=== PATIENT | female | born 1980 | race Caucasian/White ===

== ENCOUNTER 2019-09-05 23:32 | Emergency (ER) | payer OTHER, SELFPAY ==
--- NOTE | ~2019-09-05 | XR_ITS ---
EXAMINATION: XR pelvis 1-2V DATE: 09/06/2019 00:26 INDICATION: Right hip pain. Fall. TECHNIQUE: An anteroposterior view of the pelvis was obtained. COMPARISON: None. FINDINGS: Bone alignment is normal. No fracture. Joint spaces are well maintained. IMPRESSION: 1. Normal pelvis. Reviewed, dictated and finalized at location A. [facility] IMPRESSION: 1. Normal pelvis.
[2019-09-05 23:37] VITALS: BP 154/83; PULSE 88; RESP 16; TEMP 36.8; O2SAT 100
--- NOTE | 2019-09-05 23:59 | ED.GENADULT ---
HPI - General Adult General Chief complaint: Extremity Injury, Lower Stated complaint: tripped on toy and did the splits/ leg pain Time Seen by Provider: 09/05/19 23:36 Source: patient and family Mode of arrival: ambulatory Limitations: no limitations History of Present Illness HPI narrative: Patient is 39-year-old female who presents to emergency department for evaluation of pain to the buttock after doing the splits after slipping on a toy just prior to arrival has not had anything for pain pain is located to the bilateral buttock patient notes moderate aching pain worse with sitting activity and movement patient denies other injuries or complaints and presents per private vehicle Related Data Allergies Allergy/AdvReac Type Severity Reaction Status Date / Time lisinopril Allergy Severe Swelling Verified 09/06/19 00:04 losartan Allergy Mild ITCHING Verified 09/06/19 00:04 Review of Systems Review of Systems: Narrative: CONSTITUTIONAL: Denies fever, chills, or sweats. CARDIOVASCULAR: Denies chest pain GASTROINTESTINAL: Denies abdominal pain, nausea, vomiting, or diarrhea. GENITOURINARY: Denies dysuria or hematuria. SKIN: Denies bruising or swelling MUSCULOSKELETAL: Denies joint pain NEUROLOGIC: Denies headache, numbness, dizziness, or weakness. [facility] Surgical History Surgical History History of Exam Narrative: Exam Narrative: GENERAL: Well-appearing, well-nourished, and in no acute distress. HEAD: Normocephalic, atraumatic. EYES: PERRLA and EOMI. ENT: Nares clear, no rhinorrhea or epistaxis. Mucous membranes moist. CHEST: Clear to auscultation. No respiratory distress. No wheezes rales or rhonchi HEART: Regular rate and rhythm. No murmur heard. Normal peripheral pulses. ABDOMEN: Soft, nontender, nondistended EXTREMITIES: Normal range of motion. No edema. No lumbar tenderness to palpation. Tenderness of the pelvis no deformity SKIN: Warm, dry, no rash. NEURO: No focal deficits. Alert and oriented x3. Cranial nerves II through XII grossly intact. Normal speech and gait PSYCH: Normal mood and affect. Course Vital Signs Vital signs: Vital Signs Temperature 98.2 F 09/05/19 23:37 Pulse Rate 88 09/05/19 23:37 Respiratory Rate 16 09/05/19 23:37 Blood Pressure 154/83 H 09/05/19 23:37 Pulse Oximetry 100 09/05/19 23:37 Temperature 98.2 F 09/05/19 23:37 Pulse Rate 88 09/05/19 23:37 Respiratory Rate 16 09/05/19 23:37 Blood Pressure 154/83 H 09/05/19 23:37 Pulse Oximetry 100 09/05/19 23:37 Medical Decision Making MDM Narrative Medical decision making narrative: Patients injury or pain is consistent with musculoskeletal etiology. No signs of neurological or vascular compromise on exam. Compartments and tisues are soft without signs of compartment syndrome. Pain is felt appropriate for further evaluation on an outpatient basis. Vital Signs Vital Signs: Vital Signs Temperature 98.2 F 09/05/19 23:37 Pulse Rate 88 09/05/19 23:37 Respiratory Rate 16 09/05/19 23:37 Blood Pressure 154/83 H 09/05/19 23:37 Pulse Oximetry 100 09/05/19 23:37 Temperature 98.2 F 09/05/19 23:37 Pulse Rate 88 09/05/19 23:37 Respiratory Rate 16 09/05/19 23:37 Blood Pressure 154/83 H 09/05/19 23:37 Pulse Oximetry 100 09/05/19 23:37 Discharge Plan Discharge Clinical Impression: Pelvic pain Patient Disposition: Home, Self-Care Condition: Stable Instructions: Antibiotic Form, Pelvic Pain (ED) Additional Instructions: Medications as needed and prescribed. Limit lifting and bending. You may apply heat or cold to the area as needed. Follow up with your doctor for further care. Contact your doctor or return to the emergency department if you develop problems with bladder or bowel function, weakness or loss of feeling in one or both of your legs, or any other serious concerns. Prescriptions: New
[2019-09-06] MEDS: IBUPROFEN 600 MG TABLET PO (00:12)
[2019-09-06 01:31] VITALS: BP 128/70; PULSE 88; RESP 17; O2SAT 98
[2019-09-06] MEDS: DIAZEPAM 2 MG TABLET PO (01:31)
== END 2019-09-06 01:39 | disposition home or self-care (01) ==
PROVIDERS: Emergency Provider Emergency Medicine
DX: R10.2 Pelvic and perineal pain (principal); W18.09XA Striking against other object with subsequent fall, initial encounter
CPT/HCPCS: 72170; 99283; A9270

== ENCOUNTER 2020-01-23 16:56 | Emergency (ER) | payer OTHER, SELFPAY ==
[2020-01-23 17:02] VITALS: BP 150/71; PULSE 85; RESP 20; TEMP 37.3; O2SAT 99
--- NOTE | 2020-01-23 17:32 | ED.GENADULT ---
HPI - General Adult General Chief complaint: Urogenital-Female Stated complaint: uti Time Seen by Provider: 01/23/20 17:32 Source: patient and RN notes reviewed Mode of arrival: ambulatory Limitations: no limitations History of Present Illness HPI narrative: 39-year-old female presents with urinary complaints for 1 day. Dysuria consist of burning and urgency.? No treatment.? Denies fever or chills. No significant pelvic pain. No vaginal discharge.? No concerns for STDs. Exacerbating factors urinating.? Denies hematuria or vaginal bleeding. Denies being , LMP 4 weeks ago and not sexually active.? No flank pain. Denies nausea, vomiting, and abdominal pain.? Tolerating liquids well.? Remains active. The patient reports she have not been diagnosed with COVID-19. The patient reports she is not waiting for the results of a COVID-19 lab test. The patient reports she do not have fever, chills, weakness, or fatigue. The patient reports she do not have a new or worsening cough or shortness of breath. Denies chest pain. The patient reports she do not have any rhinorrhea, congestion, sore throat, and diarrhea. Denies recent traveling. Denies concerns for COVID-19 or exposures been home with limited outdoor exposure except for essential household needs and return home. At this time, patient is not suspected of having COVID-19. Some parts of this dictation were generated by voice recognition software and may contain typographical and/or grammatical inaccuracies. Related Data Home Medications Medication Instructions Recorded Confirmed levothyroxine 125 mcg PO DAILY 01/23/20 01/23/20 sertraline 100 mg PO DAILY 01/23/20 01/23/20 Allergies Allergy/AdvReac Type Severity Reaction Status Date / Time lisinopril Allergy Severe Swelling Verified 01/23/20 17:03 losartan Allergy Mild ITCHING Verified 01/23/20 17:03 Review of Systems Review of Systems: Narrative: CONSTITUTIONAL: Denies fever, chills, sweats. EYES: Denies visual changes, redness, discharge. ENT: Denies rhinorrhea, congestion, sore throat, otalgia. CARDIOVASCULAR: Denies chest pain, palpitations, edema. RESPIRATORY: Denies dyspnea, wheezing, cough. GASTROINTESTINAL: Denies abdominal pain, nausea, vomiting, diarrhea. GENITOURINARY: Complains of dysuria (burning and urgency). Denies hematuria, abnormal discharge. SKIN: Denies rash or itching. MUSCULOSKELETAL: Denies acute back pain, joint pain, or myalgia. NEUROLOGIC: Denies numbness or focal weakness. PSYCHIATRIC: Denies anxiety or depression. All systems reviewed & are unremarkable except as noted in HPI and below. [facility] Past Medical History Medical History delivery delivered Depression Hypothyroidism Surgical History Surgical History History of twins Family History Family History Father Unknown family medical history Mother , 2 years ago, cardiac Heart disease Social History Social History Smoking status: Former smoker Smoking end date: 07/31/09 Alcohol intake: never Substance use: never Living arrangements: with family Occupation/Education: unemployed Gender identity (if verbalized by the patient): Female Comments At time of signature, agree with nurse past medical, surgical, social, and family history.? There is no relevant family history pertinent to the presenting complaint. Exam Narrative: Exam Narrative: GENERAL: This is a well-nourished, well-developed patient, in no apparent distress.? Talks in full sentences and ambulates with steady gait without dyspnea. HEAD: normocephalic, atraumatic. EYES: PERRL. Sclera clear/white. Vision is grossly intact. CARDIOVASCULAR: Regular rate and rhythm without murmurs, gallops, or rub
== END 2020-01-23 17:42 | disposition home or self-care (01) ==
PROVIDERS: Emergency Provider Nurse Practitioner Family
DX: R30.0 Dysuria (principal); E03.9 Hypothyroidism, unspecified; I10 Essential (primary) hypertension; Z87.891 Personal history of nicotine dependence
CPT/HCPCS: 81003; 87086; 87088; 99213; G0463

== ENCOUNTER 2020-09-17 16:25 | Emergency (ER) | payer OTHER, SELFPAY ==
[2020-09-17 16:50] VITALS: BP 133/76; PULSE 75; RESP 20; TEMP 36.3; O2SAT 100
--- NOTE | 2020-09-17 17:36 | ED.DENTAL ---
HPI - Dental/Oral General Chief complaint: Dental/Oral Stated complaint: Dental/Oral Source: patient Mode of arrival: ambulatory Limitations: no limitations History of Present Illness HPI Narrative: Patient is a 40-year-old female who presents complaining of right lower dental pain 1 week. She reports using [id number] meds for pain without relief. She reports having an appointment with a dentist but not for 2 months. She denies all other complaints at this time. Related Data Home Medications Medication Instructions Recorded Confirmed fluoxetine 20 mg PO DAILY 09/17/20 09/17/20 levothyroxine [Euthyrox] 125 mcg PO DAILY 09/17/20 09/17/20 Allergies Allergy/AdvReac Type Severity Reaction Status Date / Time lisinopril Allergy Severe Swelling Verified 09/17/20 16:44 losartan Allergy Mild ITCHING Verified 09/17/20 16:44 Review of Systems Review of Systems: Narrative: CONSTITUTIONAL: Denies fever, chills, or sweats. EYES: Denies visual changes, redness, or discharge. ENT: Reports right lower dental pain CARDIOVASCULAR: Denies chest pain, palpitations, or edema. RESPIRATORY: Denies cough or dyspnea. GASTROINTESTINAL: Denies abdominal pain, nausea, vomiting, or diarrhea. GENITOURINARY: Denies dysuria or hematuria. SKIN: Denies rash or itching. MUSCULOSKELETAL: Denies back pain, joint pain, or myalgia. NEUROLOGIC: Denies headache, numbness, dizziness, or weakness. PSYCHIATRIC: Denies anxiety or depression. [facility] Past Medical History Medical History (Updated 09/17/20 @ 17:41 by ZAKIYA Ward) delivery delivered Depression Hypothyroidism Surgical History Surgical History History of twins Family History Family History Father Unknown family medical history Mother , 2 years ago, cardiac Heart disease Social History Social History Smoking status: Former smoker Smoking end date: 07/31/09 Alcohol intake: never Substance use: never Gender identity (if verbalized by the patient): Female Comments At the time of signature, I have reviewed and agree with nursing past medical, surgical, social, and family history unless otherwise noted. Please see nursing chart for further information. There is no relevant family history pertinent to the presenting complaint. Exam Narrative: Exam Narrative: GENERAL: Well-appearing, well-nourished, and in no acute distress. HEAD: Normocephalic, atraumatic. EYES: No redness or drainage. Conjunctiva are normal. ENT: Mucous membranes pink and moist. Multiple dental caries, fractures and missing teeth. CHEST: No respiratory distress. HEART: Regular rate and rhythm. EXTREMITIES: Normal range of motion. No edema. SKIN: Warm, dry, no rash. NEURO: No focal deficits. Alert and oriented x3. Gait steady. PSYCH: Normal affect. No signs of depression or anxiety. Course Vital Signs Vital signs: Vital Signs Temperature 36.3 C L 09/17/20 16:50 Pulse Rate 75 09/17/20 16:50 Respiratory Rate 20 09/17/20 16:50 Blood Pressure 133/76 09/17/20 16:50 Pulse Oximetry 100 09/17/20 16:50 Temperature 36.3 C L 09/17/20 16:50 Pulse Rate 75 09/17/20 16:50 Respiratory Rate 20 09/17/20 16:50 Blood Pressure 133/76 09/17/20 16:50 Pulse Oximetry 100 09/17/20 16:50 Reviewed-patient is informed that they may have pre-hypertension or hypertension based on a blood pressure reading. I recommend the patient call the primary care provider listed on their discharge instructions or a physician of their choice this week to arrange follow-up for further evaluation of possible pre-hypertension or hypertension. MDM - Dental/Oral MDM Narrative Medical decision making narrative: Patient most likely has dental abscess, infection. Patient to be started on antibiotics at
== END 2020-09-17 18:30 | disposition home or self-care (01) ==
PROVIDERS: Emergency Provider Nurse Practitioner; PCP Nurse Practitioner Adult Health
DX: K02.9 Dental caries, unspecified (principal); Z87.891 Personal history of nicotine dependence; F32.9 Major depressive disorder, single episode, unspecified; E03.9 Hypothyroidism, unspecified
CPT/HCPCS: 99213; G0463

== ENCOUNTER 2022-12-23 15:12 | Emergency (ER) | payer OTHER, SELFPAY ==
[2022-12-23 15:19] VITALS: BP 109/70; PULSE 104; RESP 16; TEMP 37.1; O2SAT 99
--- NOTE | 2022-12-23 15:19 | ED.URI ---
HPI - URI/Sore Throat General Chief Complaint: Upper Respiratory Infection Stated Complaint: Sore Throat/Cold Symptoms Time Seen by Provider: 12/23/22 15:22 Source: patient, RN notes reviewed and old records reviewed Mode of arrival: ambulatory Limitations: no limitations History of Present Illness HPI Narrative: 42-year-old female presents to the [facility] with complaints of sore throat, nasal drainage and congestion for 3 days. Denies any other symptoms. Denies fevers. No treatment prior to arrival. Onset (ago): day(s) (3) Related Data Allergies Allergy/AdvReac Type Severity Reaction Status Date / Time lisinopril Allergy Severe Swelling Verified 12/23/22 15:22 losartan Allergy Mild ITCHING Verified 12/23/22 15:22 Review of Systems Review of Systems: All systems reviewed & are unremarkable except as noted in HPI and below Constitutional: Constitutional: Reports no additional constitutional complaints Eyes: Eyes: Reports no additional eye complaints ENT: Reports as per HPI Cardiovascular: Cardiovascular: Reports no additional cardiovascular complaints, Denies chest pain and Denies dyspnea Respiratory: Respiratory: Reports no additional respiratory complaints, Denies chest congestion, Denies cough and Denies dyspnea Gastrointestinal: Gastrointestinal: Reports no additional gastrointestinal complaints, Denies abdominal pain, Denies nausea and Denies vomiting Musculoskeletal: Musculoskeletal: Reports no additional musculoskeletal complaints Integumentary/Breasts: Skin/Breast: Reports system reviewed and no additional complaints, except as docu Neurologic: Reports system reviewed and no additional complaints, except as documented Psychiatric: Psychiatric: Reports no additional psychiatric complaints Allergic/Immunologic: Allergic/Immunologic: Reports no additional allergic/immunologic complaints [facility] Past Medical History Medical History Anxiety delivery delivered Depression History of demise, not currently Hypertension Hypothyroidism Screening for breast cancer Surgical History Surgical History History of 11/18/15 primary c/s--twins 06/15/18 rpt c/s w/btl History of tubal ligation (06/15/18) Family History Family History Father Unknown family medical history Acute myocardial infarction Alcoholism Mother , 2 years ago, cardiac Heart disease Grandparent Acute myocardial infarction paternal grandfather Malignant tumor of ovary maternal grandmother Social History Social History Smoking status: Former smoker Smoking end date: 07/31/09 Alcohol intake: never Substance use: never Substance use type: does not use Living arrangements: other Additional living arrangements comments: Occupation/Education: unemployed Gender identity (if verbalized by the patient): Female Sexual Orientation (if Verbalized by the Patient): Bisexual Comments At the time of my signature, I reviewed and agree with the nursing past medical, surgical, social, and family history. There is no relevant family history pertinent to the patient complaint. Exam Const: General: cooperative, healthy appearing, comfortable, no acute distress, well developed, alert and well nourished Nutritional Appearance: well nourished and obese Orientation/consciousness: patient oriented x3 Limitations: no limitations HENMT: Head: normal to inspection Ears: hearing grossly normal bilaterally and external ears normal Face/Nose/Sinus: Normal external nose present, Normal nares present, Normal nasal mucous membranes and turbinates present and normal facial exam Face and sinus: normal facial exam Mouth: Yes Normal oral and palatal mucosa present, Ye
== END 2022-12-23 16:00 | disposition home or self-care (01) ==
PROVIDERS: Emergency Provider Nurse Practitioner; PCP Family Medicine
DX: J06.9 Acute upper respiratory infection, unspecified (principal); Z87.891 Personal history of nicotine dependence; I10 Essential (primary) hypertension; E03.9 Hypothyroidism, unspecified
CPT/HCPCS: 87081; 87880; 99213; G0463

== ENCOUNTER 2023-01-11 13:47 | Emergency (ER) | payer OTHER, SELFPAY ==
--- NOTE | 2023-01-11 19:43 | PC.NURSE ---
01/11/23 SEE DOWNTIME DOCUMENTATION. ELIESER GUERRIER RN
== END 2023-01-11 14:33 | disposition home or self-care (01) ==
LOC: EXPBETH 18:06
PROVIDERS: Emergency Provider Nurse Practitioner Family
DX: H10.9 Unspecified conjunctivitis (principal)
CPT/HCPCS: 99213; G0463

== ENCOUNTER 2023-02-06 15:34 | Outpatient (CLI) | payer OTHER, SELFPAY ==
--- NOTE | ~2023-02-06 | MM_ITS ---
EXAMINATION: MM screening patricia BI w chanel HISTORY: Screening mammogram TECHNIQUE: Craniocaudal and mediolateral oblique 3-D tomosynthesis images were obtained and synthetic 2-D images were generated. CAD analysis was submitted and interpreted. COMPARISON: No prior mammogram is available for comparison at this institution. BREAST PARENCHYMAL COMPOSITION: There are scattered areas of fibroglandular density. FINDINGS: There is no evidence of suspicious mass, calcification, or architectural distortion to sugg est malignancy in either breast. There has been no suspicious interval change. IMPRESSION: 1. No mammographic evidence of malignancy. 2. Recommend routine screening mammography in one year. BI-RADS Category 1: Negative Reviewed, dictated and finalized at location A.
== END 2023-02-06 15:35 | disposition home or self-care (01) ==
LOC: ANHIMG 15:40
PROVIDERS: PCP Student in an Organized Health Care Education/Training Program; Visit Provider Student in an Organized Health Care Education/Training Program
DX: Z12.31 Encounter for screening mammogram for malignant neoplasm of breast (principal)
CPT/HCPCS: 77063; 77067